=== PATIENT | male | born 2000 | race Hispanic/Latino ===

== ENCOUNTER 2025-03-18 17:36 | Emergency (ER) | payer BC | END 2025-03-18 19:30 | disposition home or self-care (01) | LOC: JD.ED 17:36 | DX: M25.561 Pain in right knee (principal); F17.200 Nicotine dependence, unspecified, uncomplicated; Z86.16 Personal history of COVID-19 | CPT/HCPCS: 73562-26-RT; 73562-RT; 99282; 99283 ==